=== PATIENT | female | born 1970 | race Caucasian/White ===

== ENCOUNTER 2020-05-23 08:20 | Emergency (ER) | payer OTHER, SELFPAY ==
[2020-05-23 08:23] VITALS: BP 154/89; PULSE 78; RESP 16; TEMP 36.9; O2SAT 99; BMI 29.5
--- NOTE | 2020-05-23 09:08 | ED_ITS ---
HPI - Eye Problem General Chief complaint: Eye Problems Stated complaint: PINK EYE? Time Seen by Provider: 05/23/20 08:25 Source: patient Mode of arrival: ambulatory Limitations: no limitations History of Present Illness HPI Narrative: 49-year-old female with a past medical history of chronic back pain and past surgical history of a hysterectomy presenting to the ED with complaints of right eye redness, itching, watery, swelling for the past week worse today now starting in the left eye despite being on topical antibiotic eye drops prescribed by her PCP by telehealth call. Reports that her grandson had pinkeye initially and his symptoms resolved. She denies any other symptoms complaints or concerns at this time. chief complaint: eye pain, eye redness and vision change Onset (ago): day(s) (Past few days worse today) Onset description: gradual Duration: constant and progressively worsening Location: both eyes Eye Symptoms: burning, redness, itching, discharge and blurry vision Place: home Mechanism: none Severity: moderate If Pain, Quality: burning Associated symptoms: none Related Data Previous Rx's Medication Instructions Recorded amoxicillin-pot clavulanate 1 tab PO BID 10 Days #20 tab 05/23/20 [Augmentin] clindamycin HCl 300 mg PO TID 10 Days #30 cap 05/23/20 erythromycin 1 appl OPHTHALMIC (EYE) DAILY 5 05/23/20 Days #3.5 g Allergies Allergy/AdvReac Type Severity Reaction Status Date / Time acetaminophen [From TYLENOL] AdvReac Intermediate DIARRHEA Unverified 11/13/19 17:05 NSAIDS (Non-Steroidal AdvReac Intermediate COLITIS Unverified 11/13/19 17:05 Anti-Inflamma [NSAIDS (NON-STEROIDAL ANTI-INFLAMMA] Review of Systems Review of Systems: Constitutional : No fevers, no chills, No changes in activity, No lethargy, No recent prior head injury, No agitation, No increased fussiness ENT/Mouth : No Ear Pain, No Nasal discharge/drainage Eyes: + Vision changes/blurry/decreased vision, + Redness/discharge /drainage/itching, + eyelid edema, No Eye Pain, No Swelling, No Foreign Body, No Photophobia, no contact lens uses, no recent welding, no bleeding Cardiovascular : No Chest Pain, No SOB Respiratory : No Cough Gastrointestinal : No Nausea, No Vomiting, No abdominal Pain Genitourinary : No Dysuria, No Urinary Frequency, No Urinary Incontinence, No Urgency, No Flank Pain Musculoskeletal : No joint pain, No neck stiffness, No back pain/injury Skin : No lacerations Neuro : No unsteady gait, No Paresthesias, No Loss of Consciousness, No altered mental status, No dizziness, No Headache Denies past medical history of HIV, recent trauma, coagulopathy, recent spinal/ epidural procedure, new medication, URI symptoms, close contacts with similar symptoms, tick bite, or known CO2 exposure. Yes all other systems are reviewed and are negative [facility] Past Medical History Attestation statement: The following information was validated with the patient. Medical History Back pain Social History Social History Smoking Status: Current every day smoker Use of substances other than those prescribed or required for medical reasons: No Advance Directives: No Advance Directives Information Provided: No Physical Exam Vital Signs: Vital Signs: Last Vital Signs Temp 98.5 F 05/23/20 08:23 Pulse 78 05/23/20 08:23 Resp 16 05/23/20 08:23 BP 154/89 H 05/23/20 08:23 Pulse Ox 99 05/23/20 08:23 Body Mass Index 29.5 vital signs have been reviewed as normal and appeared to be correct. Blood pressure hypertensive at 154/89. Heart rate normal. Respiration rate normal. Temperature normal. Oxygen saturation normal. Appearance: Alert. Oriented X3. No acute distress. Head: Normal external exam. Normocephalic. Atraumatic. No Burr signs noted. No raccoon eyes noted Eyes: PERRLA. EOMI. Bilateral conjunctiva erythematous consistent with bacterial conjunctivitis with watery/purulent discharge noted bilaterally. Cornea are normal. Funduscopic exam within normal limits. Sclera normal. Eyelid to right eye upper and lower with mild erythema soft tissue swelling consistent with periorbital cellulitis. Not consistent with orbital cellulitis. No papilledema noted. Anterior chamber normal. No photophobia noted. Pressure to right eye is . Pressure to left eye is . Visual acuity to right eye 20/70. Visual acuity to left eye 20/25. ENT: EAC normal. TM's Normal. Pharynx normal. Uvula midline. Moist mucous membranes. Neck: Normal inspection. Neck supple. FROM. No adenopathy. Thyroid Normal. No meningeal signs. No neck mass noted. CVS: Normal heart rate and rhythm. Heart sound normal. No murmurs noted. Pulses normal throughout. Respiratory: No respiratory distress. Painless inspiration. Breath sounds normal. Back: Full range of motion noted. Skin: Skin warm and dry. Normal skin color. Normal skin turgor. No rashes/lesions/lacerations noted. Extremities: No lower extremity edema. Extremities exhibit normal range of motion. Extremities nontender. Neuro: Oriented X 3. No motor deficit. No sensory deficit. Reflexes normal. Course Course Course Narrative: 52-year-old female presenting to the ED with complaints of swelling to right upper and lower eyelid with associated erythema to bilateral eyes with watery/purulent discharge and itchiness with blurry vision to the right eye. Denies thoughts of foreign bodies. I offered to apply tetracaine and stained the eye to rule out any foreign bodies although patient reports she does not believe there is foreign bodies and she declined this exam reported that her grandson also had the same symptoms. Therefore will DC home with antibiotics and referral to Dr. Sims the electrician manager and instructions return if any new or worsening symptoms. Patient understands agrees with this plan. MDM - Eye Problem Medical Records Attestation: I reviewed the patient's medical records. Discharge Plan Discharge Clinical Impression: Bacterial conjunctivitis, Periorbital cellulitis Patient Disposition: Home, Self-Care Instructions: Periorbital Cellulitis in Adults (ED), Conjunctivitis (ED) Prescriptions: New clindamycin HCl 300 mg capsule 300 mg PO TID 10 Days Qty: 30 RF: 0 amoxicillin-pot clavulanate [Augmentin] 875-125 mg tablet 1 tab PO BID 10 Days Qty: 20 RF: 0 erythromycin 5 mg/gram (0.5 %) ointment 1 appl ophthalmic (eye) DAILY 5 Days Qty: 3.5 RF: 0 Referrals: Suman Sims [Physician] - 2 days Stand Alone Forms: Work/School Release Print Language: Mongolian
[2020-05-23] MEDS: Amoxicillin/Potassium Clav 875 MG TABLET PO (09:20)
[2020-05-23] MEDS: Erythromycin Base 0.5% Oph Oin 1 GM TUBE 1 CM EYE-BOTH (09:20)
== END 2020-05-23 09:29 | disposition home or self-care (01) ==
PROVIDERS: Emergency Provider Emergency Medicine; PCP Internal Medicine
DX: H10.31 Unspecified acute conjunctivitis, right eye (principal); L03.213 Periorbital cellulitis; H57.11 Ocular pain, right eye; F17.200 Nicotine dependence, unspecified, uncomplicated; Z71.6 Tobacco abuse counseling
CPT/HCPCS: 99283; 99284

== ENCOUNTER 2020-10-17 18:57 | Emergency (ER) | payer OTHER, SELFPAY ==
--- NOTE | ~2020-10-17 | XR_ITS ---
EXAMINATION: XR CHEST CLINICAL INFORMATION: Cough, shortness of breath COMPARISON: None TECHNIQUE: 2 views of the chest were obtained. FINDINGS: No significant abnormality is noted involving the heart, lungs, mediastinum, bony thorax or soft tissues. XR/XR chest 2V IMPRESSION: Unremarkable examination.
[2020-10-17 19:26] VITALS: BP 136/106; PULSE 84; RESP 24; TEMP 36.6; O2SAT 96; BMI 28.4
[2020-10-17 19:55] LABS: COVID-19 Test Negative (Negative); IDNOW Serial# 9DD0AD1C
== END 2020-10-17 21:21 | disposition left against medical advice (07) ==
PROVIDERS: Emergency Provider Emergency Medicine
DX: R07.9 Chest pain, unspecified (principal); R06.02 Shortness of breath; Z20.822 Contact with and (suspected) exposure to COVID-19
CPT/HCPCS: 36415; 71046; 87635; 99282; 99283

== ENCOUNTER 2021-02-06 14:49 | Emergency (ER) | payer OTHER, SELFPAY ==
--- NOTE | ~2021-02-06 | XR_ITS ---
EXAMINATION: LEFT FOOT AND ANKLE X-RAY CLINICAL INFORMATION: Swelling COMPARISON: None TECHNIQUE: 3 views of the left ankle and 3 views of the left foot FINDINGS: Left ankle: There is an avulsion fracture of the lateral malleolus. There is a curvilinear ossification inferior to the medial malleolus questionable for fracture as well. The ankle mortise is normal. There is lateral soft tissue swelling. Left foot: Bone alignment is normal. No fracture or dislocation is seen. There is a small plantar calcaneal spur. There is a small 3 mm irregularly-shaped density in the soft tissues over the plantar heel questionable for foreign body. Clinical correlation recommended. XR/XR foot LT min 3V IMPRESSION: Left ankle: Avulsion fracture of the lateral malleolus and questionable for fracture of the medial malleolus. Lateral soft tissue swelling. Left foot: Radiopaque 3 mm density in the soft tissues over the plantar heel questionable for soft tissue foreign body. Clinical correlation recommended. Plantar calcaneal spur.
--- NOTE | ~2021-02-06 | XR_ITS ---
EXAMINATION: LEFT FOOT AND ANKLE X-RAY CLINICAL INFORMATION: Swelling COMPARISON: None TECHNIQUE: 3 views of the left ankle and 3 views of the left foot FINDINGS: Left ankle: There is an avulsion fracture of the lateral malleolus. There is a curvilinear ossification inferior to the medial malleolus questionable for fracture as well. The ankle mortise is normal. There is lateral soft tissue swelling. Left foot: Bone alignment is normal. No fracture or dislocation is seen. There is a small plantar calcaneal spur. There is a small 3 mm irregularly-shaped density in the soft tissues over the plantar heel questionable for foreign body. Clinical correlation recommended. XR/XR ankle LT min 3V IMPRESSION: Left ankle: Avulsion fracture of the lateral malleolus and questionable for fracture of the medial malleolus. Lateral soft tissue swelling. Left foot: Radiopaque 3 mm density in the soft tissues over the plantar heel questionable for soft tissue foreign body. Clinical correlation recommended. Plantar calcaneal spur.
[2021-02-06 15:04] VITALS: BP 117/78; PULSE 82; RESP 18; TEMP 36.9; O2SAT 97; BMI 29.2
--- NOTE | 2021-02-06 15:31 | ED.LOWEXIN ---
HPI - Extremity Injury (Lower) General Chief Complaint: Extremity Injury, Lower Stated Complaint: fall ankle inj Time Seen by Provider: 02/06/21 15:25 Source: patient Mode of arrival: ambulatory Limitations: no limitations History of Present Illness HPI Narrative: 50-year-old female here with reports of left ankle pain after a slip and fall down several stairs. There was no head injury or loss of consciousness. She is here complaining of left ankle pain, swelling which is worsened with weight bearing. Related Data Previous Rx's Medication Instructions Recorded amoxicillin 875 mg-potassium 1 tab PO BID 10 Days #20 tab 05/23/20 clavulanate 125 mg tablet (Augmentin) clindamycin HCl 300 mg capsule 300 mg PO TID 10 Days #30 cap 05/23/20 erythromycin 5 mg/gram (0.5 %) eye 1 appl OPHTHALMIC (EYE) DAILY 5 05/23/20 ointment Days #3.5 g Allergies Allergy/AdvReac Type Severity Reaction Status Date / Time acetaminophen [From TYLENOL] AdvReac Intermediate DIARRHEA Unverified 11/13/19 17:05 NSAIDS (Non-Steroidal AdvReac Intermediate COLITIS Unverified 11/13/19 17:05 Anti-Inflamma [NSAIDS (NON-STEROIDAL ANTI-INFLAMMA] Review of Systems Review of Systems: Yes all other systems are reviewed and are negative Constitutional: Constitutional: Reports no additional constitutional complaints, Denies body ache(s), Denies chills, Denies fever(s), Denies headache(s) and Denies weakness Eyes: Eyes: Reports no additional eye complaints and Denies change in vision ENT: Reports system reviewed and no additional complaints, except as documented, Denies dizziness, Denies headache(s), Denies nasal congestion, Denies nasal discharge and Denies neck pain Cardiovascular: Cardiovascular: Reports no additional cardiovascular complaints, Denies chest pain, Denies leg edema and Denies dyspnea Respiratory: Respiratory: Reports no additional respiratory complaints, Denies cough and Denies dyspnea Gastrointestinal: Gastrointestinal: Reports no additional gastrointestinal complaints, Denies abdominal pain, Denies diarrhea, Denies nausea and Denies vomiting Genitourinary: Genitourinary: Reports no additional female genitourinary complaints and Denies urinary incontinence Musculoskeletal: Musculoskeletal: Reports no additional musculoskeletal complaints, Denies back pain, Reports arthralgias, Reports joint swelling, Denies neck pain, Denies numbness and Denies tingling Integumentary/Breasts: Skin/Breast: Reports system reviewed and no additional complaints, except as docu and Denies rash Neurologic: Reports system reviewed and no additional complaints, except as documented, Denies Abnormal speech present, Denies dizziness, Denies headache(s), Denies numbness, Denies tingling and Denies weakness PMFSH Past Medical History Attestation statement: The following information was validated with the patient. Source: old records reviewed and nursing notes reviewed Medical History Back pain Social History Social History Advance Directives: No Advance Directives Information Provided: No Physical Exam Vital Signs: Vital Signs: Last Vital Signs Temp 98.4 F 02/06/21 15:04 Pulse 82 02/06/21 15:04 Resp 18 02/06/21 15:04 BP 117/78 02/06/21 15:04 Pulse Ox 97 02/06/21 15:04 BMI result Body Mass Index 29.2 Const: General: cooperative, healthy appearing, comfortable and no acute distress Orientation/consciousness: patient oriented x3 Limitations: no limitations HENMT: Head: Yes normal to inspection Ears: hearing grossly normal bilaterally General nose exam: Normal external nose present Face and sinus: Yes normal facial exam Mouth: Normal oral and palatal mucosa present Throat: Yes posterior oropharynx normal Eyes: General: appearance normal, both eyes and all related structures Pupils: Equal, round and reactive pupils present Neck: Neck: Yes normal visual inspection Chest: Chest palpation & inspection: normal inspection of the chest Resp: Effort & Inspection: normal respiratory effort Auscultation: clear to auscultation bilaterally Cardio: Rate: regular rate Rhythm: regular rhythm Peripheral pulses: Peripheral pulses 2+ throughout GI: Inspection: Yes normal to inspection Palpation (GI): Soft to palpation and nontender Auscultation: normal bowel sounds Back/Spine/Pelvis: Thoracic/Lumbar Spine: thoracic and lumbar spine normal to inspection Skin: General skin exam: no rashes or lesions noted Neuro: General: patient oriented x3, no focal motor deficits and normal sensation to monofilament Cranial nerves: Yes Equal, round and reactive pupils present Cognition (Neuro): normal cognition Speech: No Abnormal speech present Gait exam (Neuro): Normal gait present Motor exam (neuro): 5/5 motor strength present throughout Extrem: Other: There is swelling and tenderness the lateral ankle with full range of motion. No posterior or medial ankle pain. No foot pain. There is palpable distal pulses. Neurovascularly intact distally. Normal cap refill. General: Yes normal to inspection Course Course Course Narrative: 50-year-old female here with complaints of inversion injury to the left ankle after a fall down several stairs. There is no head injury or loss of consciousness. Most of her pain is over the lateral ankle. Will check x-rays. [id number]-[id number] show an avulsion fracture lateral malleolus. There is a question of a avulsion fractures the medial malleolus but there is no tenderness on exam over this area. Will place patient in a orthopedic boot and have her follow-up with Orthopedics. I did explain to the patient's there is also a foreign body seen in the plantar heel. Patient denies any new injury or trauma causing this but tells me years ago she did caught her foot on a piece of glass in the same site and believes may be related. Reviewed worrisome signs and symptoms of when to return to the emergency department. Comfortable discharge home. MDM - Extremity Injury (Lower) Medical Records Attestation: I reviewed the patient's medical records. Lab Data Attestation: I reviewed the patient's lab results. Imaging Data foot x-ray left : Attestation: I personally reviewed and interpreted this imaging study as follows: Radiologist's impression: Left foot: Radiopaque 3 mm density in the soft tissues over the plantar heel questionable for soft tissue foreign body. Clinical correlation recommended. Plantar calcaneal spur.? left ankle xray: Attestation: I personally reviewed and interpreted this imaging study as follows: Radiologist's impression: IMPRESSION: Left ankle: Avulsion fracture of the lateral malleolus and questionable for fracture of the medial malleolus. Lateral soft tissue swelling. Procedures Procedure Narrative Procedure Narrative: ortho boot Discharge Plan Discharge Clinical Impression: Ankle fracture, lateral malleolus, closed Qualifiers: Encounter type: initial encounter Fracture alignment: nondisplaced Laterality: left Qualified Code(s): S82.65XA - Nondisplaced fracture of lateral malleolus of left fibula, initial encounter for closed fracture Patient Disposition: Home, Self-Care Instructions: Ankle Fracture (ED) Additional Instructions: Rest, ice, elevation on 3 or more pillows Walking boot for ambulation. Use cane as well. Follow-up with orthopedics for appointment this week Prescriptions: No Action clindamycin HCl 300 mg capsule 300 mg PO TID 10 Days Qty: 30 RF: 0 amoxicillin-pot clavulanate [Augmentin] 875-125 mg tablet 1 tab PO BID 10 Days Qty: 20 RF: 0 erythromycin 5 mg/gram (0.5 %) ointment 1 appl ophthalmic (eye) DAILY 5 Days Qty: 3.5 RF: 0 Referrals: Sobia Aden MD [Physician] - 2 days [place] Renetta Hearn MD [Primary Care Provider] - 2 days Interventions: ED Discharge Assessment Last Done: 02/06/21 16:58 Discharge Date/Time: 02/06/21 16:59
== END 2021-02-06 16:59 | disposition home or self-care (01) ==
PROVIDERS: Emergency Provider Emergency Medicine; PCP Internal Medicine
DX: S82.65XA Nondisplaced fracture of lateral malleolus of left fibula, initial encounter for closed fracture (principal); W10.8XXA Fall (on) (from) other stairs and steps, initial encounter; Y93.89 Activity, other specified; Y92.9 Unspecified place or not applicable; Y99.9 Unspecified external cause status
CPT/HCPCS: 73610; 73630; 99283; 99284

== ENCOUNTER → 2021-03-02 10:32 | Outpatient (BNVA) | payer OTHER, SELFPAY | PROVIDERS: Visit Provider Physician Assistant | DX: S82.62XA Displaced fracture of lateral malleolus of left fibula, initial encounter for closed fracture (principal) | CPT/HCPCS: 99202 ==

== ENCOUNTER 2024-12-15 18:23 | Emergency (ER) | payer OTHER, SELFPAY ==
--- NOTE | ~2024-12-15 | XR_ITS ---
CLINICAL HISTORY: trauma 3 view right ankle Comparison: None provided Findings: Bones intact. No dislocations. Plantar heel spur. No erosion. No arthritic change. No ankle effusion. No radiopaque foreign body. IMPRESSION: 1. No acute findings. This document has been electronically signed by: Kaiden Leiva MD on 12/15/2024 21:06:23
--- NOTE | ~2024-12-15 | XR_ITS ---
CLINICAL HISTORY: trauma 3 view right foot Comparison: None provided Findings: No dislocation. Plantar heel spur without erosion. Mild 1st metatarsophalangeal degenerative change. No ankle effusion. No radiopaque foreign body. IMPRESSION: Acute nondisplaced fracture at the proximal shaft 5th proximal phalanx. This document has been electronically signed by: Kaiden Leiva MD on 12/15/2024 21:07:22
[2024-12-15 18:50] VITALS: BP 148/79; PULSE 80; RESP 18; TEMP 36.6; O2SAT 98; BMI 25.0
--- NOTE | 2024-12-15 18:50 | ED_ITS ---
HPI - General Adult General Chief complaint: Extremity Injury, Lower Stated complaint: right toe inj Time Seen by Provider: 12/15/24 20:14 Source: patient Limitations: no limitations History of Present Illness ED Provider: Yazmni Chance PA-C HPI narrative: 54-year-old female with a chronic pain followed by pain management, on chronic opiate therapy, presents after mechanical fall. Patient was carrying a basket of laundry down the stairs, she missed the last step, tripping and subsequently injuring the right foot. Associated swelling and bruising over the dorsum of the foot. Related Data Previous Rx's ?Medication ?Instructions ?Recorded amoxicillin 875 mg-potassium 1 tab PO BID Periorbital 05/23/20 clavulanate 125 mg tablet cellulitis 10 days #20 tabs (Augmentin) clindamycin HCl 300 mg capsule 300 mg PO TID Periorbit al 05/23/20 cellulitis 10 days #30 caps erythromycin 5 mg/gram (0.5 %) eye 1 appl ophthalmic ( eye) DAILY 05/23/20 ointment Bacterial conjunctivitis 5 d ays #3.5 grams methylprednisolone 4 mg tablets in 4 mg PO QAM #21 ea 12/15/24 a dose pack (Medrol (Hari)) Allergies Allergy/AdvReac Type Severity Reaction Status Date / Time acetaminophen (From TYLENOL) AdvReac Intermediate DIARRHEA Verified 12/15/24 18:52 NSAIDS (Non-Steroidal AdvReac Intermediate COLITIS Verified 12/15/24 18:52 Anti-Inflamma (NSAIDS (NON-STEROIDAL ANTI-INFLAMMA) Review of Systems Review of Systems: Yes all other systems are reviewed and are negative Constitutional: Constitutional: Denies fatigue and Denies fever(s) Musculoskeletal: Musculoskeletal: Reports arthralgias and Reports joint swelling Endocrine: Endocrine: Denies fatigue PMFSH Past Medical History Attestation statement: The following information was validated with the patient. Medical History Back pain Social History Social History (Updated 03/02/21 @ 10:45 by Markie Belcher) Advance Directives: No Advance Directives Information Provided: Yes Do you have a plan to hurt others: No Plan Current occupational status: retired Current occupation: [employer] Physical Exam ED Vital Signs: Vital Signs - 24 hr 12/15/24 18:50 Temperature 98 F Pulse Rate 80 Respiratory Rate 18 Blood Pressure 148/79 H Pulse Oximetry 98 Oxygen Delivery Method Room Air BMI result Body Mass Index 25.0 Const Other: Alert well-appearing Orientation/consciousness: patient oriented x3 Resp Effort & Inspection: normal respiratory effort Cardio Other: Normal peripheral perfusion Skin Other: Warm dry no rash Neuro General: patient oriented x3, no focal motor deficits and CN's II-XI intact bilaterally Extrem Other: Bruising over the dorsum of the right foot, in relation to digits 345 Psych Other: Cooperative Course Course Course Narrative: RME, this is a rapid medical exam performed by Giovanni Sequeira please refer to primary provider for complete H&P- 54-year-old female presents for evaluation of right foot and ankle pain. She fell about an hour and a half prior to arrival. She was carrying a laundry basket down the stairs when she missed a step. There was no prodrome of dizziness, lightheadedness prior to the front. Plan for x- rays Medical Decision Making Medical Decision Making MDM Narrative: 54-year-old female with a chronic pain followed by pain management, on chronic opiate therapy, presents after mechanical fall. Patient was carrying a basket of laundry down the stairs, she missed the last step, tripping and subsequently injuring the right foot. Associated swelling and bruising over the dorsum of the foot. Problem: Chronic pain History: Per patient I have considered the following differential diagnoses: Fracture, dislocation, sprain, contusion Plan: X-rays ordered from triage, she sustained a subtle fracture of the 5th toe, we will place in a walking boot some crutches and home care instructions. Placing on a steroid taper to be used as an anti-inflammatory, she states she takes oxycodone and gabapentin for pain, we will send with contact for Podiatry. I have independently reviewed the following tests: Right foot x-ray:IMPRESSION: Acute nondisplaced fracture at the proximal shaft 5th proximal phalanx. Right ankle x-ray:Findings: Bones intact. No dislocations. Plantar heel spur. No erosion. No arthritic change. No ankle effusion. No radiopaque foreign body. IMPRESSION: 1. No acute findings. Differential Diagnosis Differential Diagnoses: The differential diagnosis associated with the presentation includes See medical decision-making Admission/Observation Consideration of admission/observation: Escalation of care including admission/observation considered Not applicable Radiology Impression Discussion of test interpretation with radiology: I have reviewed the radiologist's reading. Discharge Plan Discharge Clinical Impression: Closed fracture of phalanx of right fifth toe Patient Disposition: Home, Self-Care Instructions: Crutch Instructions (ED), Toe Fracture (ED), Walking Boot (ED) Additional Instructions: You sustained a subtle fracture of the right 5th toe. See home care instructions. Use the walking boot and crutches as needed, bear weight as tolerated. Take the steroid taper as directed, this is an anti-inflammatory. You can take your other pain medications as needed. I am providing you with a contact for a dental practitioner, if you need their services in the future. Prescriptions: New methylprednisolone [Medrol (Hari)] 4 mg tablets,dose pack 4 mg PO QAM Qty: 21 0RF Rx Instructions: Take per package instructions No Action clindamycin HCl 300 mg capsule 300 mg PO TID 10 Days Qty: 30 0RF amoxicillin-pot clavulanate [Augmentin] 875-125 mg tablet 1 tab PO BID 10 Days Qty: 20 0RF erythromycin 5 mg/gram (0.5 %) ointment 1 appl ophthalmic (eye) DAILY 5 Days Qty: 3.5 0RF Referrals: Devika Ambrocio DPM [Staff Certified Nurse Midwife, Podiatry] Referral Note: Right 5th phalanx fracture Print Language: Macanese
[2024-12-15 22:04] VITALS: BP 148/79; PULSE 80; RESP 18; TEMP 36.6; O2SAT 98
== END 2024-12-15 22:05 | disposition home or self-care (01) ==
PROVIDERS: Emergency Provider Emergency Medicine Emergency Medical Services
DX: S92.502A Displaced unspecified fracture of left lesser toe(s), initial encounter for closed fracture (principal); W10.9XXA Fall (on) (from) unspecified stairs and steps, initial encounter; Y93.89 Activity, other specified; Y92.9 Unspecified place or not applicable; R60.0 Localized edema
CPT/HCPCS: 73610; 73630; 99283

== ENCOUNTER → 2024-12-15 18:50 | Outpatient (BNV) | payer OTHER, SELFPAY | PROVIDERS: Emergency Provider Emergency Medicine Emergency Medical Services; Visit Provider Radiology Diagnostic Radiology | DX: S62.646A Nondisplaced fracture of proximal phalanx of right little finger, initial encounter for closed fracture (principal); Z04.3 Encounter for examination and observation following other accident | CPT/HCPCS: 73610; 73630 ==